=== PATIENT | male | born 1965 | race Caucasian/White ===

== ENCOUNTER 2017-04-25 13:04 | Emergency (ER) | payer BC, OTHER ==
[~2017-04-25] VITALS: Ht 185.4 cm; Wt 68.9 kg
[2017-04-25 13:16] VITALS: BP 141/95
[2017-04-25 13:44] LABS: BILIRUBIN,URINE NEG (NEG); CLARITY,URINE CLEAR; COLOR,URINE AMBER; GLUCOSE,URINE NEG (NEG)
[2017-04-25 13:45] LABS: UROBILINOGEN,URINE 1 mg/dL (0.2 mg/dL)
[2017-04-25 13:48] LABS: BACTERIA,URINE 0 /HPF (0-FEW); GRANULAR CASTS,URINE OCC /HPF; SQUAMOUS EPITHELIAL CELL,UR OCC /LPF
[2017-04-25 13:49] LABS: HYALINE CASTS, URINE FEW /HPF
--- NOTE | 2017-04-25 14:02 | PHYS DOC ---
Past History Past Medical History: Hypertension Past Surgical History: Knee Replacement Alcohol Use: Rarely Drug Use: None, Other Adult General Chief Complaint Chief Complaint: MALE UROGENITAL PROBLEMS HPI HPI 52 year old male patient complaining of bloody urine for the last 8 days with pinkish colored urine without pain or dysuria or fever and chills. 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 Review of Systems Review of Systems Constitutional: Denies fever or chills [] Eyes: Denies change in visual acuity, redness, or eye pain [] HENT: Denies nasal congestion or sore throat [] Respiratory: Denies cough or shortness of breath [] Cardiovascular: No additional information not addressed in HPI [] GI: Denies abdominal pain, nausea, vomiting, bloody stools or diarrhea [] : Denies dysuria , reports hematuria [] Musculoskeletal: Denies joint pain, complaining of chronic back pain [] Integument: Denies rash or skin lesions [] Neurologic: Denies headache, focal weakness or sensory changes [] Endocrine: Denies polyuria or polydipsia [] All other systems were reviewed and found to be within normal limits, except as documented in this note. Allergies Allergies Allergies Coded Allergies Type Severity Reaction Last Updated Verified No Known Drug Allergies 04/25/17 No Physical Exam Physical Exam Constitutional: Well developed, well nourished, no acute distress, non-toxic appearance. [] HENT: Normocephalic, atraumatic, bilateral external ears normal, oropharynx moist, no oral exudates, nose normal. [] Eyes: PERRLA, EOMI, conjunctiva normal, no discharge. [] Neck: Normal range of motion, no tenderness, supple, no stridor. [] Cardiovascular:Heart rate regular rhythm, no murmur [] Lungs & Thorax: Bilateral breath sounds clear to auscultation [] Abdomen: Bowel sounds normal, soft, no tenderness, no masses, no pulsatile masses. [] Skin: Warm, dry, no erythema, no rash. [] Back: No tenderness, no CVA tenderness. [] Extremities: No tenderness, no cyanosis, no clubbing, ROM intact, no edema. [] Neurologic: Alert and oriented X 3, normal motor function, normal sensory function, no focal deficits noted. [] Psychologic: Affect normal, judgement normal, mood normal. [] Current Patient Data Vital Signs Vital Signs Date Time Temp Pulse Resp B/P (MAP) Pulse Ox O2 Delivery O2 Flow Rate FiO2 04/25/17 13:16 98.3 66 20 100 Room Air EKG EKG [] Radiology/Procedures Radiology/Procedures [] Course & Med Decision Making Course & Med Decision Making Pertinent Labs reviewed. (See chart for details) Evaluation of patient in the os with 52-year-old male patient with complaining of hematuria for 8 days without pain or dysuria. Patient had 1-2 RBC in UA and instructed to follow with his primary care physician regarding microscopic hematuria. Dragon Disclaimer Dragon Disclaimer This electronic medical record was generated, in whole or in part, using a voice recognition dictation system. Departure Departure: Impression: Primary Impression: Microscopic hematuria Disposition: HOME, SELF-CARE (At 1359) Condition: STABLE Referrals: MARGI TUBBS (PCP) Patient Instructions: Hematuria, Adult Additional Instructions: Follow-up with your primary care physician in 2-3 days for microscopic blood in urine ABDELRAHMAN ROSE MD Apr 25, 2017 14:01
== END 2017-04-25 14:09 | disposition home or self-care (01) ==
LOC: ER 13:04
DX: R31.29 Other microscopic hematuria (principal); I10 Essential (primary) hypertension
CPT/HCPCS: 81001; 99283

== ENCOUNTER → 2017-07-23 | Outpatient (CLI) | payer OTHER ==
--- NOTE | 2017-07-23 15:19 | RAD ---
Chest, 2 views, 07/23/2017: History: Chest pain The heart size and pulmonary vascularity are normal. A dense nodule in the right lung base is compatible with a calcified granuloma. No acute infiltrate is seen. There is no evidence of pleural fluid. Spinal stimulator leads extend into the lower thoracic spinal canal. IMPRESSION: No acute cardiopulmonary abnormality is detected.
== END | disposition home or self-care (01) ==
LOC: DXRAD 14:47
PROVIDERS: ATTEND Internal Medicine
DX: J84.10 Pulmonary fibrosis, unspecified (principal); R91.1 Solitary pulmonary nodule
CPT/HCPCS: 71046

== ENCOUNTER 2018-08-08 03:41 | Emergency (ER) | payer OTHER ==
[~2018-08-08] VITALS: Ht 195.6 cm; Wt 93.0 kg
[2018-08-08 03:49] VITALS: BP 127/99
--- NOTE | 2018-08-08 04:07 | ED.ADGEN ---
Past History Past Medical History: Hypertension, Other Past Surgical History: Other Alcohol Use: Occasionally Drug Use: None Adult General Chief Complaint Chief Complaint Leg cramps HPI HPI 53 years old male presented to the emergency department with leg cramps started 3 no morning patient stated woke him up from sleep severe cramps he usually has cramps in his back and legs and takes Flexeril for his as needed but was never this severe denies any acute pain Review of Systems Review of Systems [] Respiratory: Denies cough or shortness of breath [] Cardiovascular: No additional information not addressed in HPI [] GI: Denies abdominal pain, nausea, vomiting, bloody stools or diarrhea [] : Denies dysuria or hematuria [] Musculoskeletal: Denies back pain or joint pain [] Integument: Denies rash or skin lesions [] Neurologic: Denies headache, focal weakness or sensory changes [] Current Medications Current Medications Current Medications Medications (Trade) Dose Ordered Sig/Chris Start Time Stop Time Status Last Admin Dose Admin Cyclobenzaprine HCl (Flexeril) 10 mg 1X ONCE 08/08/18 04:30 08/08/18 04:31 DC 08/08/18 04:10 10 MG Ketorolac Tromethamine (Toradol Im) 60 mg 1X ONCE 08/08/18 04:30 08/08/18 04:31 DC 08/08/18 04:10 60 MG Morphine Sulfate (Morphine 10mg Syringe) 10 mg 1X ONCE 08/08/18 05:00 08/08/18 05:08 DC 08/08/18 05:04 10 MG Allergies Allergies Allergies Coded Allergies Type Severity Reaction Last Updated Verified oxycodone Allergy Severe 08/08/18 Yes Physical Exam Physical Exam Eyes: PERRLA, EOMI, conjunctiva normal, no discharge. [] Neck: Normal range of motion, no tenderness, supple, no stridor. [] Cardiovascular:Heart rate regular rhythm, no murmur [] Lungs & Thorax: Bilateral breath sounds clear to auscultation [] Abdomen: Bowel sounds normal, soft, no tenderness, no masses, no pulsatile masses. [] Skin: Warm, dry, no erythema, no rash. [] Back: No tenderness, no CVA tenderness. [] Extremities: No tenderness, no cyanosis, no clubbing, ROM intact, no edema. [] Neurologic: Alert and oriented X 3, normal motor function, normal sensory function, no focal deficits noted. [] Current Patient Data Vital Signs Vital Signs Date Time Temp Pulse Resp B/P (MAP) Pulse Ox O2 Delivery O2 Flow Rate FiO2 08/08/18 05:04 20 97 Room Air 08/08/18 03:49 98.1 82 Lab Results Laboratory Tests Test 08/08/18 04:15 White Blood Count 8.0 x10^3/uL (4.0-11.0) Red Blood Count 4.43 x10^6/uL (4.30-5.70) Hemoglobin 13.4 g/dL (13.0-17.5) Hematocrit 39.6 % (39.0-53.0) Mean Corpuscular Volume 89 fL (79-100) Mean Corpuscular Hemoglobin 30 pg (25-35) Mean Corpuscular Hemoglobin Concent 34 g/dL (31-37) Red Cell Distribution Width 13.7 % (11.5-14.5) Platelet Count 244 x10^3/uL (140-400) Neutrophils (%) (Auto) 52 % (31-73) Lymphocytes (%) (Auto) 31 % (24-48) Monocytes (%) (Auto) 10 % (0-9) H Eosinophils (%) (Auto) 7 % (0-3) H Basophils (%) (Auto) 0 % (0-3) Neutrophils # (Auto) 4.2 x10^3uL (1.8-7.7) Lymphocytes # (Auto) 2.5 x10^3/uL (1.0-4.8) Monocytes # (Auto) 0.8 x10^3/uL (0.0-1.1) Eosinophils # (Auto) 0.5 x10^3/uL (0.0-0.7) Basophils # (Auto) 0.0 x10^3/uL (0.0-0.2) Sodium Level 142 mmol/L (136-145) Potassium Level 3.8 mmol/L (3.5-5.1) Chloride Level 105 mmol/L (98-107) Carbon Dioxide Level 28 mmol/L (21-32) Anion Gap 9 (6-14) Blood Urea Nitrogen 27 mg/dL (8-26) H Creatinine 1.0 mg/dL (0.7-1.3) Estimated GFR (Cockcroft-Gault) 78.2 Glucose Level 102 mg/dL (70-99) H Calcium Level 8.6 mg/dL (8.5-10.1) EKG EKG [] Radiology/Procedures Radiology/Procedures [] Course & Med Decision Making Course & Med Decision Making Pertinent Labs and Imaging studies reviewed. (See chart for details) [] Final Impression Final Impression [] Problems: (1) Leg cramping Dragon Disclaimer Dragon Disclaimer This electronic medical record was generated, in whole or in part, using a voice recognition dictation system. TIN ASHBY MD Aug 08, 2018 04:07
[2018-08-08] MEDS ORDERED: CYCLOBENZAPRINE 10 MG TABLET. PO ONE (04:30)
[2018-08-08] MEDS ORDERED: KETOROLAC 60 MG/2 ML VIAL. IM ONE (04:30)
[2018-08-08 04:37] LABS: BASO % 0 % (0-3); EOS # 0.5 x10^3/uL (0.0-0.7); EOS % 7 % (0-3); HEMATOCRIT 39.6 % (39.0-53.0); HEMOGLOBIN 13.4 g/dL (13.0-17.5); LYMPH # 2.5 x10^3/uL (1.0-4.8); LYMPH % 31 % (24-48); MEAN CORPUSCULAR HEMOGLOBIN 30 pg (25-35); MEAN CORPUSCULAR HGB CONC 34 g/dL (31-37); MEAN CORPUSCULAR VOLUME 89 fL (79-100); MONO # 0.8 x10^3/uL (0.0-1.1); MONO % 10 % (0-9); NEUT # 4.2 x10^3uL (1.8-7.7); NEUT % 52 % (31-73); PLATELET COUNT 244 x10^3/uL (140-400); RED BLOOD COUNT 4.43 x10^6/uL (4.30-5.70); RED CELL DISTRIBUTION WIDTH 13.7 % (11.5-14.5)
[2018-08-08 04:44] LABS: CALCIUM 8.6 mg/dL (8.5-10.1); GFR 78.2; POTASSIUM 3.8 mmol/L (3.5-5.1)
[2018-08-08] MEDS ORDERED: MORPHINE SULFATE 10 MG/ML SYRINGE. IM ONE (05:00)
== END 2018-08-08 05:43 | disposition home or self-care (01) ==
LOC: ER 03:41
DX: R25.2 Cramp and spasm (principal); M79.605 Pain in left leg; M79.604 Pain in right leg; I10 Essential (primary) hypertension; Z88.5 Allergy status to narcotic agent
CPT/HCPCS: 36415; 80048; 85025; 96372; 99283; J1885; J2270